=== PATIENT | male | born 1990 | race Caucasian/White ===

== ENCOUNTER 2020-05-12 10:57 | Outpatient (REF) | payer OTHER, SELFPAY ==
[2020-05-12 13:09] LABS: Alanine Aminotransferase 21 U/L (0-40); Albumin Level 4.5 g/dL (3.5-5.0); Alkaline Phosphatase 82 U/L (39-117); Anion Gap 12 (12-20); Aspartate Amino Transferase 16 U/L (5-37); Blood Urea Nitrogen 17 mg/dL (9-16); Carbon Dioxide 25 mmol/L (22-29); Chloride 107 mmol/L (96-108); Cholesterol 133 mg/dL; Estimated Glomerular Filt Rate > 60; Glucose Random 98 mg/dL (60-115); HDL Cholesterol 33 mg/dL; LDL Cholesterol Calculated 83 mg/dl; Potassium 4.5 mmol/l (3.3-5.1); Sodium 139 mmol/L (135-145); Total Protein 7.1 g/dL (6.5-8.0); Triglycerides 88 mg/dL
[2020-05-12 13:26] LABS: HIV AB/AG Nonreactive (Nonreactive); HIV Num 1 0.07 S/CO (0.00-0.99)
[2020-05-12 13:31] LABS: Thyroid Stimulating Hormone 3.48 mIU/mL (0.32-4.0)
[2020-05-12 16:12] LABS: CT PCR NOT DETECTED (Not Detect.); NG PCR NOT DETECTED (Not Detect.)
[2020-05-15 12:22] LABS: Treponema pallidum Ab FTA ABS Nonreactive (Nonreactive)
== END 2020-05-12 10:58 | disposition home or self-care (01) ==
LOC: HO.LAB 10:57
PROVIDERS: PCP Internal Medicine; Visit Provider Internal Medicine
DX: Z11.3 Encounter for screening for infections with a predominantly sexual mode of transmission (principal); Z11.4 Encounter for screening for human immunodeficiency virus [HIV]; R63.5 Abnormal weight gain
CPT/HCPCS: 80053; 80061; 84443; 86780; 87389; 87491; 87591

== ENCOUNTER 2020-11-12 09:29 | Outpatient (REF) | payer OTHER, SELFPAY ==
[2020-11-12 10:53] LABS: Alanine Aminotransferase 20 U/L (0-40); Albumin Level 4.5 g/dL (3.5-5.0); Alkaline Phosphatase 93 U/L (39-117); Anion Gap 12 (12-20); Aspartate Amino Transferase 16 U/L (5-37); Bilirubin Total 0.9 mg/dL (0.0-1.0); Blood Urea Nitrogen 21 mg/dL (9-16); Calcium 9.3 mg/dL (8.4-10.2); Carbon Dioxide 25 mmol/L (22-29); Chloride 106 mmol/L (96-108); Estimated Glomerular Filt Rate > 60; Glucose Random 96 mg/dL (60-115); Potassium 4.1 mmol/L (3.3-5.1); Sodium 139 mmol/L (135-145); Total Protein 7.1 g/dL (6.5-8.0)
== END 2020-11-12 09:30 | disposition home or self-care (01) ==
LOC: HO.LAB 09:29
PROVIDERS: PCP Internal Medicine; Visit Provider Internal Medicine
DX: Z00.00 Encounter for general adult medical examination without abnormal findings (principal); M25.522 Pain in left elbow; N46.9 Male infertility, unspecified
CPT/HCPCS: 36415; 80053

== ENCOUNTER 2021-08-05 11:04 | Outpatient (REF) | payer OTHER, SELFPAY ==
[2021-08-05 11:36] LABS: COVID-19 Test Negative (Negative)
== END 2021-08-05 11:05 | disposition home or self-care (01) ==
LOC: HO.LAB 11:04
PROVIDERS: Visit Provider Internal Medicine
DX: Z20.822 Contact with and (suspected) exposure to COVID-19 (principal)
CPT/HCPCS: 87635; C9803

== ENCOUNTER 2021-09-08 19:04 | Emergency (ER) | payer OTHER, SELFPAY ==
[2021-09-08 20:36] VITALS: BP 115/76; PULSE 113; RESP 18; TEMP 36.6; O2SAT 97; BMI 38.0
[2021-09-08] MEDS: Ondansetron ODT 4 MG TAB.RAPDIS TRANSLINGU (20:42)
[2021-09-08 20:47] LABS: MANUAL DIFF FLAG NO
[2021-09-08 20:49] LABS: Basophils Percent Auto 0.2 % (0-2); Eosinophils Absolute Auto 0.2 X10*3/uL (0.0-0.4); Eosinophils Percent Auto 1.2 % (0-4); Hemoglobin 19.9 g/dl (14.0-18.0); Imm Gran Abs Auto 0.07 X10*3/uL (0.00-0.03); Imm Gran Pct Auto 0.5 % (0.0-0.4); Lymphocytes Absolute Auto 1.5 X10*3/uL (1.2-4.9); Lymphocytes Percent Auto 11.2 % (20-40); Mean Corpuscular HGB Conc 33.3 g/dl (31.0-36.0); Mean Corpuscular Hemoglobin 27.8 pg (27.0-33.0); Mean Corpuscular Volume 83.5 fL (80.0-98.0); Mean Platelet Volume 10.6 fL (9.4-12.4); Monocytes Percent Auto 7.5 % (2-11); Neutrophils Absolute Auto 10.7 x10*3/uL (2.0-8.3); Neutrophils Percent Auto 79.4 % (45-73); Platelet Count 245 X10*3/uL (160-400); Red Blood Count 7.16 X10*6/uL (4.60-5.80); Red Cell Distribution Width 14.7 % (11.0-16.0); White Blood Count 13.5 X10*3/uL (4.8-10.8)
[2021-09-08 20:57] LABS: Hematocrit 59.8 % (42.0-52.0)
[2021-09-08 21:11] LABS: Alanine Aminotransferase 86 U/L (0-40); Albumin Level 4.4 g/dL (3.5-5.0); Alkaline Phosphatase 115 U/L (39-117); Anion Gap 12 (12-20); Aspartate Amino Transferase 19 U/L (5-37); Bilirubin Total 0.9 mg/dL (0.0-1.0); Blood Urea Nitrogen 21 mg/dL (9-16); Calcium 9.2 mg/dL (8.4-10.2); Carbon Dioxide 21 mmol/L (22-29); Chloride 109 mmol/L (96-108); Creatinine Clr Calc Pharmacy 124.9; Estimated Glomerular Filt Rate > 60; Glucose Random 121 mg/dL (60-115); Sodium 138 mmol/L (135-145); Total Protein 7.5 g/dL (6.5-8.0)
--- NOTE | 2021-09-08 23:05 | ED.NAVMDI ---
HPI - Nausea/Vomiting/Diarrhea General Chief complaint: Nausea/Vomiting/Diarrhea Stated complaint: stomach pain Time Seen by Provider: 09/08/21 22:46 Source: patient Mode of arrival: ambulatory Limitations: no limitations History of Present Illness HPI Narrative: 31-year-old male who presents emergency department for evaluate her, vomiting and diarrhea. Patient states he has been sick since 09/05/2021 (4 days). The patient states that he has had constant nausea and has vomited 2-3 times per day. He states he has had frequent episodes of diarrhea greater than 10 episodes per day. He has not noticed any blood in his diarrhea or emesis. The patient states that he is the only person that is sick any has no sick contacts. He has not traveled anywhere recently. He has not been on antibiotics. He states he has had very poor oral intake over the past 4 days. He is feeling weak, dizzy and lightheaded. He denied fever, chills, rhinorrhea, sore throat, cough, chest pain, shortness of breath. Related Data Previous Rx's Medication Instructions Recorded ondansetron 4 mg disintegrating 4 mg PO Q6-8H PRN #14 tab 09/09/21 tablet Allergies Allergy/AdvReac Type Severity Reaction Status Date / Time No Known Allergies Allergy Verified 09/08/21 20:36 Review of Systems Review of Systems: Yes all other systems are reviewed and are negative [facility] Past Medical History [facility] Narrative: Past medical history: None. Past surgical history: The patient states that he had a per oral endoscopic my a myotomy (POEM) procedure approximately 2 years prior for lower esophageal sphincter dysfunction. Social history: He denies tobacco use. He states that he drinks alcohol once a month. He denies drug use. Social History Social History Advance Directives: No Advance Directives Information Provided: No Physical Exam Vital Signs: Vital Signs: Last Vital Signs Temp 98.2 F 09/09/21 01:11 Pulse 67 09/09/21 01:11 Resp 16 09/09/21 01:11 BP 114/53 L 09/09/21 01:11 Pulse Ox 99 09/09/21 01:11 BMI result Body Mass Index 38.0 Const: General: cooperative and no acute distress Orientation/consciousness: oriented to person and oriented to place Limitations: no limitations HENMT: Head: Yes normal to inspection, Yes normocephalic and Yes atraumatic Ears: external ears normal General nose exam: Normal external nose present Face and sinus: Yes normal facial exam Mouth: Normal oral and palatal mucosa present Throat: Yes posterior oropharynx normal Eyes: General: appearance normal, both eyes and all related structures Pupils: Equal, round and reactive pupils present Neck: Neck: Yes normal visual inspection, Yes no lymphadenopathy, Yes trachea midline and Yes supple Chest: Chest palpation & inspection: normal inspection of the chest and normal palpation of entire chest wall Resp: Effort & Inspection: normal respiratory effort and able to speak in complete sentences Auscultation: clear to auscultation bilaterally Cardio: Rate: regular rate Rhythm: regular rhythm Heart sounds: S1 normal heart sound present, S2 normal heart sound present and no murmurs GI: Inspection: Yes normal to inspection Palpation (GI): Soft to palpation, Tenderness to palpation present (GI) (Ezxy-[id number] diffuse abdominal tenderness) and no guarding Auscultation: normal bowel sounds : General: Yes no CVA tenderness Back/Spine/Pelvis: Back: no CVA tenderness Skin: General skin exam: no rashes or lesions noted Neuro: General: oriented to person and oriented to place Cranial nerves: Yes CN's II-XII intact bilaterally and Yes Equal, round and reactive pupils present Cognition (Neuro): normal cognition Motor exam (neuro): 5/5 motor strength present throughout Extrem: General: Yes normal to inspection Psych: Appearance: grossly normal Speech and movement: Normal speech and movement present Affect: normal affect Attitude: cooperative Thought process: Normal thought process present Thought content: Normal thought content present Course Course Course Narrative: 31-year-old male who presents emergency department for evaluation of 4 days of abdominal pain, nausea, vomiting and diarrhea. Patient has had 2-3 episodes of vomiting per day and has had greater than 10 episodes of diarrhea per day. He did not notice any blood in the emesis or diarrhea. He he had very poor oral intake over this time. He is complaining of diffuse abdominal pain. He has had no recent travel, antibiotic use or sick contacts. Laboratory evaluation was obtained. The patient was ordered to get normal saline IV x2 L, Zofran 4 mg IV and Toradol 15 mg IV. He did receive Zofran 4 mg orally while he was waiting in the emergency department with some improvement of his nausea. I did order a stool for C diff and stool culture. 2311: Laboratory evaluation: WBC was elevated 13,500, H&H was elevated 19.9 and 59.8. Chloride was elevated at 109 with a low bicarb of 21. BUN was elevated 21. Glucose was elevated 126. ALT was elevated 86. The patient's presentation is consistent with acute viral illness verses food poisoning. The patient's laboratory evaluation is consistent with volume depletion dehydration. 0143: Patient is feeling significantly better better. The patient will be discharged home. He was advised to take Imodium, Tylenol, ibuprofen and Zofran ODT for his symptoms. He was given printed and verbal instructions. He was also advised to stay on a tamera for the next 24 hours. MDM - Nausea/Vomiting/Diarrhea Lab Data Result diagrams: 09/08/21 20:43 09/08/21 20:43 Labs: Lab Results 09/08/21 09/08/21 09/08/21 Range/Units 20:43 20:43 23:58 WBC 13.5 H (4.8-10.8) X10*3/uL RBC 7.16 H (4.60-5.80) X10*6/uL Hgb 19.9 H (14.0-18.0) g/dl Hct 59.8 H (42.0-52.0) % MCV 83.5 (80.0-98.0) fL MCH 27.8 (27.0-33.0) pg MCHC 33.3 (31.0-36.0) g/dl RDW 14.7 (11.0-16.0) % Plt Count 245 (160-400) X10*3/uL MPV 10.6 (9.4-12.4) fL Immature Gran % (Auto) 0.5 H (0.0-0.4) % Neut % (Auto) 79.4 H (45-73) % Lymph % (Auto) 11.2 L (20-40) % [place] % (Auto) 7.5 (2-11) % Eos % (Auto) 1.2 (0-4) % Baso % (Auto) 0.2 (0-2) % Lymph # (Auto) 1.5 (1.2-4.9) X10*3/uL [place] # (Auto) 1.0 (0.1-1.2) X10*3/uL Eos # (Auto) 0.2 (0.0-0.4) X10*3/uL Baso # (Auto) 0.0 (0.0-0.2) X10*3/uL Abs Immat Gran (auto) 0.07 H (0.00-0.03) X10*3/uL Absolute Neuts (auto) 10.7 H (2.0-8.3) x10*3/uL Absolute Nucleated RBC 0.000 (0.0-0.012) X10*3/uL Nucleated RBC % (auto) 0.0 (0.0-0.2) /100WBC Sodium 138 (135-145) mmol/L Potassium 4.0 (3.3-5.1) mmol/L Chloride 109 H (96-108) mmol/L Carbon Dioxide 21 L (22-29) mmol/L Anion Gap 12 (12-20) BUN 21 H (9-16) mg/dL Creatinine 1.19 (0.5-1.4) mg/dL Estim Creat Clear Calc 124.9 Estimated GFR > 60 Random Glucose 121 H (60-115) mg/dL Calcium 9.2 (8.4-10.2) mg/dL Total Bilirubin 0.9 (0.0-1.0) mg/dL AST 19 (5-37) U/L ALT 86 H (0-40) U/L Alkaline Phosphatase 115 D (39-117) U/L Total Protein 7.5 (6.5-8.0) g/dL Albumin 4.4 (3.5-5.0) g/dL Lipase 11 (8-78) U/L COVID-19 ([facility]) Negative (Negative) COVID-19 Clin Com See Note Discharge Plan Discharge Clinical Impression: Acute viral syndrome, Acute dehydration Patient Disposition: Home, Self-Care Instructions: Viral Syndrome (ED) Additional Instructions: Your blood work was consistent with dehydration Your symptoms are either caused by food poisoning or a viral infection. Both of these illnesses are self-limited and you should get better without any treatment such as antibiotics. Stay on a tamera diet for the next 24 hours) banana (bananas, rice, applesauce, tea and toast) Try to increase your fluid intake, drink either [place] esmer or apple juice, drink small amounts frequently. Take ibuprofen 200 mg pills, 3 pills every 6 hours as needed for pain. Take Tylenol (acetaminophen) 500 mg pills, 2 pills every 4 to 6 hours as needed for pain. Take Imodium, 1 pill after each diarrheal bowel moved up to 8 pills per day. Take Zofran ODT 4 mg pills, 1 pill dissolved in your mouth every 8 hours as needed for nausea and vomiting. Follow-up with your doctor in 2 days. Please return to the emergency department if your symptoms get worse or if you develop any symptoms that are concerning to you. Prescriptions: New ondansetron 4 mg tablet,disintegrating 4 mg PO Q6-8H PRN (Reason: nausea and vomiting) Qty: 14 0RF
[2021-09-08] MEDS: 0.9 % Sodium Chloride 1,000 ML 999 ML IV ×2 (23:20→23:26)
[2021-09-08 23:21] LABS: Lipase 11 U/L (8-78)
[2021-09-08] MEDS: ondansetron HCL 4 MG/2 ML VIAL IVPUSH (23:22)
[2021-09-08] MEDS: Ketorolac Tromethamine 15 MG/ML VIAL IVPUSH (23:22)
[2021-09-09 00:32] LABS: COVID-19 Test Negative (Negative)
[2021-09-09 01:11] VITALS: BP 114/53; PULSE 67; RESP 16; TEMP 36.8; O2SAT 99
== END 2021-09-09 02:06 | disposition home or self-care (01) ==
PROVIDERS: Emergency Provider Emergency Medicine Emergency Medical Services
DX: B34.9 Viral infection, unspecified (principal); E86.0 Dehydration; R11.2 Nausea with vomiting, unspecified; R19.7 Diarrhea, unspecified; Z20.822 Contact with and (suspected) exposure to COVID-19
CPT/HCPCS: 36415; 80053; 83690; 85025; 87635; 96361; 96374; 96375; 99284; J1885; J2405

== ENCOUNTER 2021-09-10 11:19 | Outpatient (REF) | payer OTHER, SELFPAY ==
[2021-09-10 13:49] LABS: MANUAL DIFF FLAG NO
[2021-09-10 13:56] LABS: Basophils Percent Auto 0.1 % (0-2); Eosinophils Absolute Auto 0.1 X10*3/uL (0.0-0.4); Eosinophils Percent Auto 1.3 % (0-4); Hematocrit 55.9 % (42.0-52.0); Hemoglobin 18.4 g/dl (14.0-18.0); Imm Gran Abs Auto 0.08 X10*3/uL (0.00-0.03); Imm Gran Pct Auto 0.8 % (0.0-0.4); Lymphocytes Absolute Auto 1.5 X10*3/uL (1.2-4.9); Mean Corpuscular HGB Conc 32.9 g/dl (31.0-36.0); Mean Corpuscular Hemoglobin 27.7 pg (27.0-33.0); Mean Corpuscular Volume 84.1 fL (80.0-98.0); Mean Platelet Volume 11.5 fL (9.4-12.4); Monocytes Absolute Auto 0.8 X10*3/uL (0.1-1.2); Monocytes Percent Auto 8.5 % (2-11); Neutrophils Absolute Auto 7.2 x10*3/uL (2.0-8.3); Neutrophils Percent Auto 74.3 % (45-73); Platelet Count 224 X10*3/uL (160-400); Red Blood Count 6.65 X10*6/uL (4.60-5.80); Red Cell Distribution Width 14.4 % (11.0-16.0); White Blood Count 9.7 X10*3/uL (4.8-10.8)
[2021-09-10 14:14] LABS: Alanine Aminotransferase 54 U/L (0-40); Albumin Level 4.1 g/dL (3.5-5.0); Alkaline Phosphatase 100 U/L (39-117); Anion Gap 13 (12-20); Aspartate Amino Transferase 18 U/L (5-37); Bilirubin Total 0.9 mg/dL (0.0-1.0); Blood Urea Nitrogen 17 mg/dL (9-16); Calcium 8.9 mg/dL (8.4-10.2); Carbon Dioxide 21 mmol/L (22-29); Chloride 108 mmol/L (96-108); Estimated Glomerular Filt Rate > 60; Glucose Random 85 mg/dL (60-115); Potassium 3.9 mmol/L (3.3-5.1); Sodium 138 mmol/L (135-145); Total Protein 6.8 g/dL (6.5-8.0)
[2021-09-10 14:33] LABS: Thyroid Stimulating Hormone 4.94 uIU/mL (0.32-4.0)
[2021-09-11 07:48] LABS: HBS Num1 250.17 mIU/mL (0-7.99); HBc Num1 0.05 S/CO (0.00-0.79); Hepatitis A Antibody IgM 0.17 Index (0-0.79); Hepatitis B Core Antibody Nonreactive (Nonreactive); ~HepC Num1 0.09 S/CO (0.00-0.79); ~Hepatitis A Antibody IgM Nonreactive (Nonreactive); ~Hepatitis B Surface Antibody REACTIVE (Nonreactive); ~Hepatitis C Antibody Nonreactive (Nonreactive)
[2021-09-11 07:59] LABS: HBsAGNum1 0.22 S/CO (0.00-0.99); Hepatitis B Surface Antigen Negative (Negative)
== END 2021-09-10 11:20 | disposition home or self-care (01) ==
LOC: HO.10HDL 11:19
PROVIDERS: Visit Provider Internal Medicine
DX: D75.1 Secondary polycythemia (principal); K52.9 Noninfective gastroenteritis and colitis, unspecified; R11.10 Vomiting, unspecified; R74.01 Elevation of levels of liver transaminase levels
CPT/HCPCS: 36415; 80053; 84443; 85025; 86704; 86706; 86709; 86803; 87340